=== PATIENT | male | born 1955 | race Caucasian/White ===

== ENCOUNTER 2017-01-24 08:43 | Outpatient (CLI) | payer OTHER | END 2017-01-24 08:44 | disposition home or self-care (01) | DX: Z79.01 Long term (current) use of anticoagulants (principal) ==

== ENCOUNTER 2017-03-01 12:42 | Outpatient (CLI) | payer OTHER | END 2017-03-01 12:43 | disposition home or self-care (01) | DX: Z79.01 Long term (current) use of anticoagulants (principal) ==

== ENCOUNTER 2017-03-28 09:04 | Outpatient (CLI) | payer OTHER ==
[2017-03-28 19:10] LABS: ALBUMIN/GLOBULIN RATIO 1.4 (1.0-2.2); BILIRUBIN,TOTAL 0.7 mg/dL (0.2-1.0); BUN - BLOOD UREA NITROGEN 18 mg/dL (6-20); CALCIUM 9.1 mg/dL (8.5-10.3); CARBON DIOXIDE - CO2 28 mmol/L (21-32); CHLORIDE 104 mmol/L (101-111); CHOL/HDL RATIO 4.1 (<5.0); CHOLESTEROL 155 mg/dL; CREATININE 0.9 mg/dL (0.6-1.2); GFR - MDRD 86 (>89); GLUCOSE 103 mg/dL (70-100); HDL CHOLESTEROL 38 mg/dL; LDL/HDL RATIO 2.5 (<3.6); SODIUM 139 mmol/L (135-145); TOTAL PROTEIN 7.5 g/dL (6.7-8.2); TRIGLYCERIDES 107 mg/dL; VLDL CHOLESTEROL 21 mg/dL
== END 2017-03-28 09:05 | disposition home or self-care (01) ==
LOC: LAB.F 09:04
PROVIDERS: ATTEND Internal Medicine
DX: I10 Essential (primary) hypertension (principal); E78.00 Pure hypercholesterolemia, unspecified
CPT/HCPCS: 36415; 80053; 80061

== ENCOUNTER 2017-05-02 13:36 | Outpatient (CLI) | payer OTHER | END 2017-05-02 13:37 | disposition home or self-care (01) | LOC: LAB.F 13:36 | PROVIDERS: ATTEND Physician Assistant Medical | DX: Z79.01 Long term (current) use of anticoagulants (principal) | CPT/HCPCS: 85610 ==

== ENCOUNTER 2017-05-30 08:53 | Outpatient (CLI) | payer OTHER | END 2017-05-30 08:54 | disposition home or self-care (01) | LOC: LAB.F 08:53 | PROVIDERS: ATTEND Internal Medicine | DX: I10 Essential (primary) hypertension (principal); E78.00 Pure hypercholesterolemia, unspecified; Z79.01 Long term (current) use of anticoagulants ==

== ENCOUNTER 2017-05-31 12:46 | Outpatient (CLI) | payer OTHER ==
[2017-05-31 19:00] LABS: CHOL/HDL RATIO 3.9 (<5.0); CHOLESTEROL 132 mg/dL; HDL CHOLESTEROL 34 mg/dL; LDL/HDL RATIO 2.1 (<3.6); TRIGLYCERIDES 141 mg/dL; VLDL CHOLESTEROL 28 mg/dL
== END 2017-05-31 12:47 | disposition home or self-care (01) ==
LOC: LAB.F 12:46
PROVIDERS: ATTEND Internal Medicine
DX: I10 Essential (primary) hypertension (principal); Z79.01 Long term (current) use of anticoagulants; E78.00 Pure hypercholesterolemia, unspecified
CPT/HCPCS: 36415; 80061; 84460; 85610

== ENCOUNTER 2017-07-01 14:09 | Outpatient (CLI) | payer OTHER | END 2017-07-01 14:10 | disposition home or self-care (01) | LOC: LAB.F 14:09 | PROVIDERS: ATTEND Internal Medicine | DX: Z79.01 Long term (current) use of anticoagulants (principal) | CPT/HCPCS: 85610 ==

== ENCOUNTER 2017-08-01 08:55 | Outpatient (CLI) | payer OTHER | END 2017-08-01 08:56 | disposition home or self-care (01) | LOC: LAB.F 08:55 | PROVIDERS: ATTEND Internal Medicine | DX: Z79.01 Long term (current) use of anticoagulants (principal) | CPT/HCPCS: 85610 ==

== ENCOUNTER 2017-09-02 12:39 | Outpatient (CLI) | payer OTHER | END 2017-09-02 12:40 | disposition home or self-care (01) | LOC: LAB.F 12:39 | PROVIDERS: ATTEND Internal Medicine | DX: Z79.01 Long term (current) use of anticoagulants (principal) | CPT/HCPCS: 85610 ==

== ENCOUNTER 2017-10-03 10:22 | Outpatient (CLI) | payer OTHER | END 2017-10-03 10:23 | disposition home or self-care (01) | LOC: LAB.F 10:22 | PROVIDERS: ATTEND Physician Assistant Medical | DX: I82.509 Chronic embolism and thrombosis of unspecified deep veins of unspecified lower extremity (principal); Z79.01 Long term (current) use of anticoagulants | CPT/HCPCS: 85610 ==

== ENCOUNTER 2018-02-03 08:00 | Outpatient (CLI) | payer OTHER | END 2018-02-03 08:01 | disposition home or self-care (01) | LOC: LAB.F 08:00 | PROVIDERS: ATTEND Physician Assistant Medical | DX: I82.509 Chronic embolism and thrombosis of unspecified deep veins of unspecified lower extremity (principal); Z79.01 Long term (current) use of anticoagulants | CPT/HCPCS: 85610 ==

== ENCOUNTER 2018-03-14 12:43 | Outpatient (CLI) | payer OTHER | END 2018-03-14 12:44 | disposition home or self-care (01) | LOC: LAB.F 12:43 | PROVIDERS: ATTEND Physician Assistant Medical | DX: I82.509 Chronic embolism and thrombosis of unspecified deep veins of unspecified lower extremity (principal); Z79.01 Long term (current) use of anticoagulants | CPT/HCPCS: 85610 ==

== ENCOUNTER 2018-04-13 12:41 | Outpatient (CLI) | payer OTHER | END 2018-04-13 12:42 | disposition home or self-care (01) | LOC: LAB.F 12:41 | PROVIDERS: ATTEND Internal Medicine | DX: I82.509 Chronic embolism and thrombosis of unspecified deep veins of unspecified lower extremity (principal); Z79.01 Long term (current) use of anticoagulants | CPT/HCPCS: 85610 ==

== ENCOUNTER 2018-05-12 12:37 | Outpatient (CLI) | payer OTHER | END 2018-05-12 12:38 | disposition home or self-care (01) | LOC: LAB.F 12:37 | PROVIDERS: ATTEND Internal Medicine | DX: I82.509 Chronic embolism and thrombosis of unspecified deep veins of unspecified lower extremity (principal); Z79.01 Long term (current) use of anticoagulants | CPT/HCPCS: 85610 ==

== ENCOUNTER 2018-06-09 12:31 | Outpatient (CLI) | payer OTHER | END 2018-06-09 12:32 | disposition home or self-care (01) | LOC: LAB.F 12:31 | PROVIDERS: ATTEND Internal Medicine | DX: I82.509 Chronic embolism and thrombosis of unspecified deep veins of unspecified lower extremity (principal); Z79.01 Long term (current) use of anticoagulants | CPT/HCPCS: 85610 ==

== ENCOUNTER 2018-06-19 13:51 | Outpatient (CLI) | payer OTHER ==
[2018-06-19 17:56] LABS: HGB - HEMOGLOBIN 15.7 g/dL (14.0-18.0); MEAN CORPUSCULAR HGB CONC 34.4 g/dL (32.0-36.0); MEAN CORPUSCULAR VOLUME 90.1 fL (80.0-94.0); MEAN PLATELET VOLUME 8.2 fL (7.4-11.4); RED BLOOD COUNT 5.06 10^6/uL (4.70-6.10); WHITE BLOOD COUNT 7.7 x10^3/uL (4.8-10.8)
[2018-06-19 19:20] LABS: ALBUMIN 4.3 g/dL (3.2-5.5); ALBUMIN/GLOBULIN RATIO 1.3 (1.0-2.2); ALKALINE PHOSPHATASE 74 IU/L (42-121); ALT ALANINE AMINOTRANSFERASE 29 IU/L (10-60); AST ASPARTATE AMINOTRANSFERASE 23 IU/L (10-42); BILIRUBIN,TOTAL 0.8 mg/dL (0.2-1.0); BUN - BLOOD UREA NITROGEN 15 mg/dL (6-20); CALCIUM 9.1 mg/dL (8.5-10.3); CARBON DIOXIDE - CO2 26 mmol/L (21-32); CHLORIDE 104 mmol/L (101-111); CHOL/HDL RATIO 4.2 (<5.0); CHOLESTEROL 158 mg/dL; CREATININE 0.9 mg/dL (0.6-1.2); GFR - MDRD 85 (>89); GLUCOSE 97 mg/dL (70-100); HDL CHOLESTEROL 38 mg/dL; LDL CHOLESTEROL,CALCULATED 95 mg/dL; LDL/HDL RATIO 2.5 (<3.6); SODIUM 138 mmol/L (135-145); TOTAL PROTEIN 7.7 g/dL (6.7-8.2); VLDL CHOLESTEROL 25 mg/dL
== END 2018-06-19 13:52 | disposition home or self-care (01) ==
LOC: LAB.F 13:51
PROVIDERS: ATTEND Internal Medicine
DX: E78.00 Pure hypercholesterolemia, unspecified (principal); I10 Essential (primary) hypertension; Z12.5 Encounter for screening for malignant neoplasm of prostate; R00.2 Palpitations
CPT/HCPCS: 36415; 80053; 80061; 83721; 84153; 84443; 85027

== ENCOUNTER 2018-07-12 14:20 | Outpatient (CLI) | payer OTHER | END 2018-07-12 14:21 | disposition home or self-care (01) | LOC: LAB.F 14:20 | PROVIDERS: ATTEND Internal Medicine | DX: I82.509 Chronic embolism and thrombosis of unspecified deep veins of unspecified lower extremity (principal); Z79.01 Long term (current) use of anticoagulants | CPT/HCPCS: 85610 ==

== ENCOUNTER 2018-07-24 12:47 | Outpatient (CLI) | payer OTHER | END 2018-07-24 12:48 | disposition home or self-care (01) | LOC: LAB.F 12:47 | PROVIDERS: ATTEND Internal Medicine | DX: I82.509 Chronic embolism and thrombosis of unspecified deep veins of unspecified lower extremity (principal); Z79.01 Long term (current) use of anticoagulants | CPT/HCPCS: 85610 ==

== ENCOUNTER 2018-09-13 12:40 | Outpatient (CLI) | payer OTHER | END 2018-09-13 12:41 | disposition home or self-care (01) | LOC: LAB.F 12:40 | PROVIDERS: ATTEND Internal Medicine | DX: I82.509 Chronic embolism and thrombosis of unspecified deep veins of unspecified lower extremity (principal); Z79.01 Long term (current) use of anticoagulants | CPT/HCPCS: 85610 ==

== ENCOUNTER 2018-10-16 13:04 | Outpatient (CLI) | payer OTHER | END 2018-10-16 13:05 | disposition home or self-care (01) | LOC: LAB.F 13:04 | PROVIDERS: ATTEND Internal Medicine | DX: I82.509 Chronic embolism and thrombosis of unspecified deep veins of unspecified lower extremity (principal); Z79.01 Long term (current) use of anticoagulants | CPT/HCPCS: 85610 ==

== ENCOUNTER 2019-02-27 12:46 | Outpatient (CLI) | payer OTHER | END 2019-02-27 12:47 | disposition home or self-care (01) | LOC: LAB.F 12:46 | PROVIDERS: ATTEND Internal Medicine | DX: I82.509 Chronic embolism and thrombosis of unspecified deep veins of unspecified lower extremity (principal); Z79.01 Long term (current) use of anticoagulants | CPT/HCPCS: 85610 ==

== ENCOUNTER 2019-04-11 11:28 | Outpatient (CLI) | payer OTHER | END 2019-04-11 11:29 | disposition home or self-care (01) | LOC: LAB.F 11:28 | PROVIDERS: ATTEND Internal Medicine | DX: I82.509 Chronic embolism and thrombosis of unspecified deep veins of unspecified lower extremity (principal); Z79.01 Long term (current) use of anticoagulants | CPT/HCPCS: 85610 ==

== ENCOUNTER 2019-05-15 12:07 | Outpatient (CLI) | payer OTHER | END 2019-05-15 12:08 | disposition home or self-care (01) | LOC: LAB 12:07 | PROVIDERS: ATTEND Internal Medicine | DX: I82.509 Chronic embolism and thrombosis of unspecified deep veins of unspecified lower extremity (principal) | CPT/HCPCS: 85610 ==

== ENCOUNTER 2019-05-23 10:54 | Outpatient (CLI) | payer OTHER | END 2019-05-23 10:55 | disposition home or self-care (01) | LOC: LAB 10:54 | PROVIDERS: ATTEND Internal Medicine | DX: I82.509 Chronic embolism and thrombosis of unspecified deep veins of unspecified lower extremity (principal); Z79.01 Long term (current) use of anticoagulants | CPT/HCPCS: 85610 ==

== ENCOUNTER 2019-06-06 11:30 | Outpatient (CLI) | payer OTHER | END 2019-06-06 11:31 | disposition home or self-care (01) | LOC: LAB 11:30 | PROVIDERS: ATTEND Internal Medicine | DX: I82.509 Chronic embolism and thrombosis of unspecified deep veins of unspecified lower extremity (principal); Z79.01 Long term (current) use of anticoagulants | CPT/HCPCS: 85610 ==

== ENCOUNTER 2019-06-15 | Outpatient (CLI) | payer OTHER | END 2019-06-15 11:09 | disposition home or self-care (01) ==

== ENCOUNTER 2019-06-25 11:43 | Outpatient (CLI) | payer OTHER | END 2019-06-25 11:44 | disposition home or self-care (01) | LOC: LAB 11:43 | PROVIDERS: ATTEND Internal Medicine | DX: I82.509 Chronic embolism and thrombosis of unspecified deep veins of unspecified lower extremity (principal); Z79.01 Long term (current) use of anticoagulants | CPT/HCPCS: 85610 ==

== ENCOUNTER 2019-07-31 11:21 | Outpatient (CLI) | payer OTHER | END 2019-07-31 11:22 | disposition home or self-care (01) | LOC: LAB 11:21 | PROVIDERS: ATTEND Internal Medicine | DX: I82.509 Chronic embolism and thrombosis of unspecified deep veins of unspecified lower extremity (principal); Z79.01 Long term (current) use of anticoagulants | CPT/HCPCS: 85610 ==

== ENCOUNTER 2019-08-24 13:26 | Outpatient (CLI) | payer OTHER | END 2019-08-24 13:27 | disposition home or self-care (01) | LOC: LAB 13:26 | PROVIDERS: ATTEND Internal Medicine | DX: I82.509 Chronic embolism and thrombosis of unspecified deep veins of unspecified lower extremity (principal); Z79.01 Long term (current) use of anticoagulants | CPT/HCPCS: 85610 ==

== ENCOUNTER 2019-09-25 12:47 | Outpatient (CLI) | payer OTHER | END 2019-09-25 12:48 | disposition home or self-care (01) | LOC: LAB 12:47 | PROVIDERS: ATTEND Internal Medicine | DX: I82.509 Chronic embolism and thrombosis of unspecified deep veins of unspecified lower extremity (principal); Z79.01 Long term (current) use of anticoagulants | CPT/HCPCS: 85610 ==

== ENCOUNTER 2020-06-26 11:02 | Outpatient (CLI) | payer MEDICARE ==
[2020-06-26 15:29] LABS: BASOPHILS % (AUTO) 0.6 %; EOSINOPHILS # (AUTO) 0.1 10^3/uL (0.0-0.7); EOSINOPHILS % (AUTO) 1.9 %; HGB - HEMOGLOBIN 15.2 g/dL (14.0-18.0); LYMPHOCYTES % (AUTO) 20.2 %; MEAN CORPUSCULAR HEMOGLOBIN 29.6 pg (27.0-31.0); MEAN CORPUSCULAR HGB CONC 32.3 g/dL (32.0-36.0); MEAN CORPUSCULAR VOLUME 91.8 fL (80.0-94.0); MEAN PLATELET VOLUME 10.9 fL (7.4-11.4); MONOCYTES # (AUTO) 0.5 10^3/uL (0.0-1.0); MONOCYTES % (AUTO) 10.5 %; NEUTROPHILS # (AUTO) 3.2 10^3/uL (1.5-6.6); NEUTROPHILS % (AUTO) 66.6 %; PLT - PLATELET COUNT 161 10^3/uL (130-450); RED BLOOD COUNT 5.13 10^6/uL (4.70-6.10); RED CELL DISTRIBUTION WIDTH 12.1 % (12.0-15.0); WHITE BLOOD COUNT 4.9 x10^3/uL (4.8-10.8)
[2020-06-26 15:53] LABS: HB2 TOTAL 16.2 g/dL; HEMOGLOBIN A1C 0.57 g/dL; HEMOGLOBIN A1C % 5.4 % (4.6-6.2)
[2020-06-26 16:07] LABS: ALBUMIN 4.3 g/dL (3.2-5.5); ALBUMIN/GLOBULIN RATIO 1.3 (1.0-2.2); ALKALINE PHOSPHATASE 72 IU/L (42-121); ALT ALANINE AMINOTRANSFERASE 23 IU/L (10-60); AST ASPARTATE AMINOTRANSFERASE 21 IU/L (10-42); BILIRUBIN,TOTAL 0.8 mg/dL (0.2-1.0); BUN - BLOOD UREA NITROGEN 14 mg/dL (6-20); CALCIUM 9.1 mg/dL (8.5-10.3); CARBON DIOXIDE - CO2 27 mmol/L (21-32); CHLORIDE 101 mmol/L (101-111); CHOL/HDL RATIO 5.8 (<5.0); CHOLESTEROL 197 mg/dL; CREATININE 0.9 mg/dL (0.6-1.2); GLUCOSE 106 mg/dL (70-100); HDL CHOLESTEROL 34 mg/dL; LDL CHOLESTEROL,CALCULATED 136 mg/dL; SODIUM 140 mmol/L (135-145); TOTAL PROTEIN 7.6 g/dL (6.7-8.2); VLDL CHOLESTEROL 27 mg/dL
== END 2020-06-26 11:03 | disposition home or self-care (01) ==
LOC: LAB.S 11:02
PROVIDERS: ATTEND Internal Medicine
DX: E78.00 Pure hypercholesterolemia, unspecified (principal); R73.02 Impaired glucose tolerance (oral); I82.509 Chronic embolism and thrombosis of unspecified deep veins of unspecified lower extremity; Z79.01 Long term (current) use of anticoagulants
CPT/HCPCS: 36415; 80053; 80061; 83036; 83721; 84153; 85025; 85610

== ENCOUNTER 2020-06-30 09:43 | Outpatient (CLI) | payer MEDICARE | END 2020-06-30 09:44 | disposition home or self-care (01) | LOC: LAB.S 09:43 | PROVIDERS: ATTEND Internal Medicine | DX: E78.00 Pure hypercholesterolemia, unspecified (principal); Z79.01 Long term (current) use of anticoagulants | CPT/HCPCS: 84153 ==

== ENCOUNTER 2020-07-28 12:41 | Outpatient (CLI) | payer MEDICARE | END 2020-07-28 12:42 | disposition home or self-care (01) | LOC: LAB 12:41 | PROVIDERS: ATTEND Internal Medicine | DX: I82.509 Chronic embolism and thrombosis of unspecified deep veins of unspecified lower extremity (principal); Z79.01 Long term (current) use of anticoagulants | CPT/HCPCS: 85610 ==

== ENCOUNTER 2020-08-15 09:59 | Outpatient (CLI) | payer MEDICARE | END 2020-08-15 10:00 | disposition home or self-care (01) | LOC: LAB.S 09:59 | PROVIDERS: ATTEND Internal Medicine | DX: I82.509 Chronic embolism and thrombosis of unspecified deep veins of unspecified lower extremity (principal); Z79.01 Long term (current) use of anticoagulants | CPT/HCPCS: 85610 ==

== ENCOUNTER 2020-09-08 15:13 | Outpatient (CLI) | payer MEDICARE | END 2020-09-08 15:14 | disposition home or self-care (01) | LOC: LAB 15:13 | PROVIDERS: ATTEND Internal Medicine | DX: Z79.01 Long term (current) use of anticoagulants (principal) | CPT/HCPCS: 85610 ==

== ENCOUNTER 2020-10-08 11:19 | Outpatient (CLI) | payer MEDICARE | END 2020-10-08 11:20 | disposition home or self-care (01) | LOC: LAB 11:19 | PROVIDERS: ATTEND Internal Medicine | DX: Z79.01 Long term (current) use of anticoagulants (principal) | CPT/HCPCS: 85610 ==

== ENCOUNTER 2020-11-11 10:34 | Outpatient (CLI) | payer MEDICARE | END 2020-11-11 10:35 | disposition home or self-care (01) | LOC: LAB 10:34 | PROVIDERS: ATTEND Internal Medicine | DX: Z79.01 Long term (current) use of anticoagulants (principal) | CPT/HCPCS: 85610 ==

== ENCOUNTER 2021-01-20 09:59 | Outpatient (CLI) | payer MEDICARE | END 2021-01-20 10:00 | disposition home or self-care (01) | LOC: LAB.S 09:59 | PROVIDERS: ATTEND Internal Medicine | DX: Z79.01 Long term (current) use of anticoagulants (principal) | CPT/HCPCS: 85610 ==

== ENCOUNTER 2021-01-30 12:24 | Outpatient (CLI) | payer MEDICARE | END 2021-01-30 12:25 | disposition home or self-care (01) | LOC: LAB.S 12:24 | PROVIDERS: ATTEND Internal Medicine | DX: Z79.01 Long term (current) use of anticoagulants (principal) | CPT/HCPCS: 85610 ==

== ENCOUNTER 2021-03-11 08:00 | Outpatient (CLI) | payer MEDICARE ==
--- NOTE | 2021-03-11 13:21 | XRAY Report ---
PROCEDURE: Foot 3 View LT INDICATIONS: LEFT FOOT PAIN TECHNIQUE: 3 views of the foot were acquired. COMPARISON: None FINDINGS: Bones: No fractures or dislocations. No suspicious bony lesions. Soft tissues: No tibiotalar joint effusion. Achilles tendon appears normal. IMPRESSION: No evidence acute bony abnormality of the left foot. Reviewed by: Elier Cook MD on 03/11/2021 1:20 PM PDT Approved by: Elier Cook MD on 03/11/2021 1:20 PM PDT Station ID: [id number]
== END 2021-03-11 23:59 | disposition home or self-care (01) ==
LOC: DI.S 08:00
PROVIDERS: ATTEND Physician Assistant Medical
DX: M79.672 Pain in left foot (principal); L98.9 Disorder of the skin and subcutaneous tissue, unspecified

== ENCOUNTER 2021-05-12 08:22 | Outpatient (CLI) | payer MEDICARE ==
[2021-05-12 08:47] LABS: BASOPHILS % (AUTO) 0.8 %; EOSINOPHILS # (AUTO) 0.1 10^3/uL (0.0-0.7); EOSINOPHILS % (AUTO) 2.5 %; HCT - HEMATOCRIT 43.4 % (42.0-52.0); HGB - HEMOGLOBIN 14.8 g/dL (14.0-18.0); LYMPHOCYTES # (AUTO) 1.2 10^3/uL (1.5-3.5); LYMPHOCYTES % (AUTO) 23.2 %; MEAN CORPUSCULAR HGB CONC 34.1 g/dL (32.0-36.0); MEAN PLATELET VOLUME 10.3 fL (7.4-11.4); MONOCYTES # (AUTO) 0.5 10^3/uL (0.0-1.0); MONOCYTES % (AUTO) 9.7 %; NEUTROPHILS # (AUTO) 3.3 10^3/uL (1.5-6.6); NEUTROPHILS % (AUTO) 63.4 %; PLT - PLATELET COUNT 144 10^3/uL (130-450); RED BLOOD COUNT 4.77 10^6/uL (4.70-6.10); RED CELL DISTRIBUTION WIDTH 11.8 % (12.0-15.0); WHITE BLOOD COUNT 5.3 x10^3/uL (4.8-10.8)
[2021-05-12 08:59] LABS: ALBUMIN 4.4 g/dL (3.2-5.5); ALBUMIN/GLOBULIN RATIO 1.6 (1.0-2.2); ALKALINE PHOSPHATASE 57 IU/L (42-121); ALT ALANINE AMINOTRANSFERASE 23 IU/L (10-60); AST ASPARTATE AMINOTRANSFERASE 20 IU/L (10-42); BILIRUBIN,TOTAL 1.2 mg/dL (0.2-1.0); BUN - BLOOD UREA NITROGEN 17 mg/dL (6-20); CALCIUM 9.2 mg/dL (8.5-10.3); CARBON DIOXIDE - CO2 25 mmol/L (21-32); CHLORIDE 106 mmol/L (101-111); CHOL/HDL RATIO 5.5 (<5.0); CHOLESTEROL 169 mg/dL; CREATININE 0.8 mg/dL (0.6-1.2); GFR - MDRD 97 (>89); GLUCOSE 104 mg/dL (70-100); HDL CHOLESTEROL 31 mg/dL; LDL CHOLESTEROL,CALCULATED 120 mg/dL; LDL/HDL RATIO 3.9 (<3.6); SODIUM 141 mmol/L (135-145); TOTAL PROTEIN 7.2 g/dL (6.7-8.2); TRIGLYCERIDES 90 mg/dL; VLDL CHOLESTEROL 18 mg/dL
== END 2021-05-12 08:23 | disposition home or self-care (01) ==
LOC: LAB 08:22
PROVIDERS: ATTEND Internal Medicine
DX: I10 Essential (primary) hypertension (principal); Z12.5 Encounter for screening for malignant neoplasm of prostate
CPT/HCPCS: 36415; 80053; 80061; 85025; G0103; 83721; 84153

== ENCOUNTER 2021-06-02 11:10 | Outpatient (CLI) | payer MEDICARE ==
[2021-06-02] MEDS ORDERED: IOVERSOL 320 50 ML VIAL ONE (11:45)
[2021-06-02] MEDS ORDERED: IOVERSOL 320 100 ML VIAL IVP ONE ×2 (12:45→16:56)
--- NOTE | 2021-06-02 14:34 | CT Report ---
PROCEDURE: Abdomen/Pelvis W INDICATIONS: RLQ ABD PAIN CONTRAST: IV CONTRAST: Optiray 320 ml: 100 PO CONTRAST: Optiray 320 ml50 TECHNIQUE: After the administration of intravenous and oral contrast, 5 mm thick sections acquired from the diap hragms to the symphysis. 5 mm thick coronal and sagittal reformats were acquired. For radiation dos e reduction, the following was used: automated exposure control, adjustment of mA and/or kV accordin g to patient size. COMPARISON: None. FINDINGS: Image quality: Excellent. ABDOMEN: Lung bases: There is a 2 mm nodule in the right middle lobe (series 4 image 2). Lung bases are other altamirano there. Heart size is normal. Small hiatal hernia. Solid organs: There are multiple low-density nodules in liver, indeterminate but most likely hepatic cysts. Liver and spleen are normal in size and enhancement. There is a 1.4 cm splenule. Gallbladder is normal. Biliary system is non dilated. Pancreas enhances normally. No adrenal nodules. Kidney s demonstrate normal size and enhancement, without hydronephrosis. Peritoneum and bowel: Bowel loops demonstrate normal wall thickness and caliber. Normal appendix. N o free fluid or air. Nodes and vessels: No retroperitoneal or mesenteric adenopathy by size criteria. Aorta and inferior vena cava are normal in size. Miscellaneous: No ventral hernias. PELVIS: Genitourinary: Bladder wall thickness is normal. Miscellaneous: No inguinal adenopathy. Bilateral small fat-containing inguinal hernias, left larger than right. Bones: No suspicious bony lesions. No vertebral body compression fractures. IMPRESSION: 1. Normal appendix. A cause for right lower quadrant pain is not identified. 2. Multiple indeterminate small low-density nodules in liver, most likely hepatic cysts. 3. A 2 mm nodule in the right lower lobe. Please see enclosed follow-up recommendation. Fleischner Society criteria for SOLID lung nodule followup. Nodule size (mm) Low-risk patient High-risk patient ?4 No follow-up needed Follow-up at 12 mo; if no change, no further follow-up >4-[address] at 12 mo; if no change, no further follow-up needed. Initial follow-up CT at 6-12 mo, then 18-24 mo if no change. >6-8 Initial follow-up CT at 6-12 mo, then 18-24 mo if no change. Initial follow-up CT at 3-6 mo, then 9-12 mo and 24 mo if no change. >8 Follow-[address] at 3, 9, 24 mo. Or PET and/or biopsy. Same as for low-risk pts. Reviewed by: Rupinder Ortiz MD on 06/02/2021 2:33 PM PDT Approved by: Rupinder Ortiz MD on 06/02/2021 2:33 PM PDT Station ID: [id number]
[2021-06-02] MEDS ORDERED: IOVERSOL 320 50 ML VIAL PO ONE (16:58)
== END 2021-06-02 11:11 | disposition home or self-care (01) ==
LOC: DI 11:10
PROVIDERS: ATTEND Surgery
DX: R10.31 Right lower quadrant pain (principal); R16.0 Hepatomegaly, not elsewhere classified; R91.1 Solitary pulmonary nodule
CPT/HCPCS: 74177; Q9967

== ENCOUNTER 2022-05-03 13:38 | Emergency (ER) | payer MEDICARE ==
--- NOTE | 2022-05-03 15:26 | Ultrasound Report ---
PROCEDURE: Duplex Ext Veins Bilateral INDICATIONS: History of DVT with recent travel TECHNIQUE: Real-time imaging, as well as color and pulse Doppler interrogation, were performed of the deep veins of both legs from the inguinal ligament to the popliteal fossa. COMPARISON: None FINDINGS: There is occlusive thrombus within the right superficial femoral, proximal on the and popli teal veins. Thrombus does extend into the posterior tibial as well as peroneal veins. It is noncompre ssible there is a diminutive caliber of the vessel. Normal appearance of left deep veins. IMPRESSION: Occlusive thrombus within the right lower extremity as described above. Given somewhat diminutive marlen iber of the vessel, appearance is suggestive of chronic thrombosis. No priors are available for dee rison. Areas of acute on chronic cannot be definitively excluded. No left deep vein thrombosis. Reviewed by: Namrata Hawkins MD on 05/03/2022 3:24 PM PDT Approved by: Namrata Hawkins MD on 05/03/2022 3:24 PM PDT Station ID: [id number]
--- NOTE | 2022-05-03 15:39 | ED Physician Documentation ---
History of Present Illness - Stated complaint Stated Complaint: LEG PAIN BILAT - Chief complaint Chief Complaint: Ext Problem - History obtained from History obtained from: Patient - History of Present Illness Timing: How many weeks ago (4) - Additonal information Additional information: 66-year-old male with history of DVT on Eliquis presents by private vehicle for approximately 1 month of lower extremity swelling and pain. Patient states that he took an extended vacation to [place], and at that time he ran out of his normal Eliquis. He states that he bought Eliquis at a [facility] pharmacy, which he thought was working, however shortly after he started taking the [facility] Eliquis he noticed pain in his legs. Patient states that he has been scheduled for an ultrasound with his primary care physician, but his legs are too painful and he is here today with assistance in pain control and to find out what the cause of his leg swelling is. He states 5 days ago he got a refill of his Eliquis from [facility], which is his normal medical dose. Review of Systems Ten Systems: 10 systems reviewed and negative Constitutional: denies: Fever, Chills, Myalgias, Fatigue, Weight Loss, Sweats, Reviewed and negative, Other Eyes: denies: Loss of vision, Decreased vision, Photophobia, Discharge, Irritation, Reviewed and negative, Other Ears: denies: Loss of hearing, Ear pain, Drainage/discharge, Tinnitus/ringing, Foreign body, Reviewed and negative, Other Nose: denies: Rhinorrhea / runny nose, Congestion, Epistaxis, Sinus pressure / pain, Foreign Body, Reviewed and negative, Other Throat: denies: Dental pain / toothache, Oral lesions / sores, Sore throat, Swollen tonsils, Swallowed foreign body, Reviewed and negative, Other Cardiac: denies: Chest pain / pressure, Palpitations, Pedal edema, Calf pain, Reviewed and negative, Other Respiratory: denies: Dyspnea, Cough, Hemoptysis, Wheezing, Reviewed and negative, Other GI: denies: Abdominal Pain, Abdominal Swelling, Nausea, Vomiting, Constipation, Diarrhea, Hematemesis, Bloody / black stool, Reviewed and negative, Other : denies: Dysuria, Frequency, Hesitancy, Unable to Void, Incontinent, Hematuria, Discharge, LMP, Vaginal bleeding, Irregular menses, Missed period, Now EGA, Control, Hysterectomy, Testicular pain, Testicular mass, Cunha Problem, Reviewed and negative, Other Skin: denies: Rash, Lesions, Abrasion (s), Laceration (s), Bite / sting, Reviewed and negative, Other Musculoskeletal: reports: Extremity swelling. denies: Neck pain, Joint pain Neurologic: denies: Generalized weakness, Focal weakness, Numbness, Difficulty speaking, Near syncope, Syncope, Seizure, Confused, Altered mental status, Unresponsive, Headache, Head injury, LOC, Reviewed and negative, Other Psychiatric: denies: Depressed, Suicidal, Homicidal, Hallucinations, Delusions, Anxiety, Insomnia, Reviewed and negative, Other PD PAST MEDICAL HISTORY - Past Medical History Past Medical History: Yes - Present Medications Home Medications: Ambulatory Orders Medication Instructions Recorded Confirmed Acetaminophen/Cod 300/30 [Tylenol 1 each PO Q6H PRN 3 Days #12 tablet 05/03/22 #3] - Allergies Allergies/Adverse Reactions: Allergies Allergy/AdvReac Type Severity Reaction Status Date / Time aspirin Allergy Unknown Verified 05/03/22 13:48 NSAIDS (Non-Steroidal Allergy Unknown Verified 05/03/22 13:48 Anti-Inflamma PD ED PE NORMAL - Vitals Vital signs reviewed: Yes - General General: Alert and oriented X 3, No acute distress - Neck Neck: Supple, no meningeal sign, No bony TTP, No adenopathy, Thyroid normal, No JVD, No bruit, C-Spine cleared by NEXUS criteria, Other - Cardiac Cardiac: RRR, No murmur, No gallop, No rub, Strong equal pulses, Other - Respiratory Respiratory: No respiratory distress, Clear bilaterally, Other - Abdomen Abdomen: Normal bowel sounds, Soft, Non tender, Non distended, No organomegaly, Other - Derm Derm: Normal color, Warm and dry, No rash, Other - Extremities Extremities: No deformity, No tenderness to palpate, Normal ROM s pain, Other (Bilateral leg swelling, R>L) - Neuro Neuro: Alert and oriented X 3, gis database administrator 2-12 intact, No motor deficit, No sensory deficit, Normal speech, Other - Psych Psych: Normal mood, Normal affect Results - Vitals Vitals: Vital Signs - 24 hr 05/03/22 05/03/22 13:40 15:48 Temperature 36.5 C 36.6 C Heart Rate 91 84 Respiratory 18 16 Rate Blood Pressure 172/90 H 147/86 H O2 Saturation 100 98 Oxygen O2 Source Room air PD MEDICAL DECISION MAKING - ED course ED course: Chronic DVT in lower extremity, Presumed from not taking the correct Eliquis. Patient is currently back on his usual dose of Eliquis from the correct pharmacy. Patient is here today for additional pain control, which was provided for the patient. Counseled on the importance of following up with his primary care physician. Departure - Departure Disposition: Home, Self Care Clinical Impression: Deep vein thrombosis Qualifiers: DVT location: lower extremity Affected thrombotic vein of extremity: other lower extremity vein Chronicity: chronic Laterality: right Qualified Code(s): I82.591 - Chronic embolism and thrombosis of other specified deep vein of right lower extremity Condition: Good Instructions: DVT Dc, ED DVT Prescriptions: Acetaminophen/Cod 300/30 [Tylenol #3] 1 each PO Q6H PRN 3 Days #12 tablet PRN Reason: Pain Comments: Keep taking your Eliquis as prescribed. Follow-up as soon as possible with your primary care physician for further monitoring of your DVTs. Discharge Date/Time: 05/03/22 15:49
[2022-05-03 15:49] VITALS: BP 147/86
== END 2022-05-03 15:49 | disposition home or self-care (01) ==
LOC: ED 13:38
DX: I82.591 Chronic embolism and thrombosis of other specified deep vein of right lower extremity (principal)
CPT/HCPCS: 93970; 99284

== ENCOUNTER 2022-07-13 17:42 | Outpatient (CLI) | payer MEDICARE ==
--- NOTE | 2022-07-13 19:51 | Ultrasound Report ---
PROCEDURE: Duplex Ext Veins Left INDICATIONS: PAIN IN LEFT LOWER LEG,CUTANEOUS ERUPTION TECHNIQUE: Real-time imaging, as well as color and pulse Doppler interrogation, were performed of the lower extr emity deep veins from the inguinal ligament to the popliteal fossa. COMPARISON: 05/03/2022 FINDINGS: deep venous thrombosis present in the common femoral vein, superficial femoral vein proxim ally and the popliteal vein. Superficial thrombus at the greater saphenous vein also demonstrated. Ot her deep veins are normally compressible, and free of intraluminal thrombus. Color and pulse Doppler demonstrate normal phasic intraluminal flow. IMPRESSION: 1. Nonocclusive deep venous thrombosis involving the common femoral vein, proximal femoral vein and p opliteal vein. 2. Superficial venous thrombosis of the downstream greater saphenous vein. Reviewed by: Zeke Raphael MD on 07/13/2022 7:50 PM PDT Approved by: Zeke Raphael MD on 07/13/2022 7:50 PM PDT Station ID: [id number]
== END 2022-07-13 17:43 | disposition home or self-care (01) ==
LOC: DI 17:42
PROVIDERS: ATTEND Physician Assistant Medical
DX: I82.412 Acute embolism and thrombosis of left femoral vein (principal); I82.432 Acute embolism and thrombosis of left popliteal vein; I82.812 Embolism and thrombosis of superficial veins of left lower extremity

== ENCOUNTER 2022-07-13 18:50 | Emergency (ER) | payer MEDICARE ==
[2022-07-13 19:35] LABS: BASOPHILS % (AUTO) 0.4 %; EOSINOPHILS # (AUTO) 0.1 10^3/uL (0.0-0.7); EOSINOPHILS % (AUTO) 1.3 %; HCT - HEMATOCRIT 40.4 % (42.0-52.0); HGB - HEMOGLOBIN 13.5 g/dL (14.0-18.0); LYMPHOCYTES # (AUTO) 1.1 10^3/uL (1.5-3.5); LYMPHOCYTES % (AUTO) 12.3 %; MEAN CORPUSCULAR HEMOGLOBIN 29.9 pg (27.0-31.0); MEAN CORPUSCULAR HGB CONC 33.4 g/dL (32.0-36.0); MEAN CORPUSCULAR VOLUME 89.6 fL (80.0-94.0); MEAN PLATELET VOLUME 9.5 fL (7.4-11.4); MONOCYTES % (AUTO) 10.5 %; NEUTROPHILS # (AUTO) 6.8 10^3/uL (1.5-6.6); NEUTROPHILS % (AUTO) 75.3 %; PLT - PLATELET COUNT 153 10^3/uL (130-450); RED BLOOD COUNT 4.51 10^6/uL (4.70-6.10)
[2022-07-13 19:42] LABS: CALCIUM 8.9 mg/dL (8.5-10.3); CREATININE 0.9 mg/dL (0.6-1.2); POTASSIUM 3.9 mmol/L (3.5-5.0)
[2022-07-13] MEDS ORDERED: ENOXAPARIN 100 MG/ML SYRINGE SUBQ STA (20:06)
--- NOTE | 2022-07-13 20:11 | ED Physician Documentation ---
History of Present Illness - Stated complaint Stated Complaint: LT LEG PAIN & SWELLING - Chief complaint Chief Complaint: Ext Problem - History obtained from History obtained from: Patient - Additonal information Additional information: 66-year-old gentleman with chronic thromboembolic issues without known hypercoagulable disorder despite work-up. Problem started about 12 years ago with DVT in the right leg and has subsequent subsequent multiple DVTs since then. He was fairly stable though as long as he was on warfarin, about a year ago he was switched to Eliquis for convenience and developed DVTs through the Eliquis. 3 days ago started dabigatran, but developed bruising and rashes with that. Sent for an outpatient ultrasound today showing extensive clot load in the left lower extremity and was referred in by urgent care to start him on Lovenox. Review of Systems Constitutional: reports: Reviewed and negative Eyes: reports: Reviewed and negative Ears: reports: Reviewed and negative Nose: reports: Reviewed and negative Cardiac: reports: Reviewed and negative Respiratory: reports: Reviewed and negative PD PAST MEDICAL HISTORY - Past Medical History Past Medical History: Yes Cardiovascular: Deep vein thrombosis - Present Medications Home Medications: Ambulatory Orders Medication Instructions Recorded Confirmed Acetaminophen/Cod 300/30 [Tylenol 1 each PO Q6H PRN 3 Days #12 tablet 05/03/22 #3] Enoxaparin Sodium [Lovenox] 100 mg SQ BID #10 ahfu 07/13/22 Warfarin [Coumadin] 1 mg PO DAILY #32 tablet 07/13/22 - Allergies Allergies/Adverse Reactions: Allergies Allergy/AdvReac Type Severity Reaction Status Date / Time aspirin Allergy Unknown Verified 07/13/22 19:07 dabigatran etexilate Allergy Rash Verified 07/13/22 19:43 [From Pradaxa] NSAIDS (Non-Steroidal Allergy Unknown Verified 07/13/22 19:07 Anti-Inflamma - Social History Does the pt smoke?: No Smoking Status: Never smoker Does the pt drink ETOH?: No Does the pt have substance abuse?: No - Immunizations Immunizations are current?: Yes PD ED PE NORMAL - Vitals Vital signs reviewed: Yes - General General: Alert and oriented X 3, No acute distress - Extremities Extremities: Other (Asymmetric edema without tenderness of the left lower extremity without diminished pedal pulses or poor cap refill.) - Neuro Neuro: Alert and oriented X 3, Normal speech Results - Vitals Vitals: Vital Signs - 24 hr 08/30/22 08/30/22 19:03 20:12 Temperature 36.7 C 36.8 C Heart Rate 88 82 Respiratory 14 15 Rate Blood Pressure 160/88 H 155/81 H O2 Saturation 98 99 Oxygen O2 Source Room air - Labs Labs: Laboratory Tests 07/13/22 07/13/22 19:27 19:27 WBC 9.0 RBC 4.51 L Hgb 13.5 L Hct 40.4 L MCV 89.6 MCH 29.9 MCHC 33.4 RDW 13.0 Plt Count 153 MPV 9.5 Neut # (Auto) 6.8 H Lymph # (Auto) 1.1 L [place] # (Auto) 1.0 Eos # (Auto) 0.1 Baso # (Auto) 0.0 Absolute Nucleated RBC 0.00 Nucleated RBC % 0.0 Sodium 136 Potassium 3.9 Chloride 102 Carbon Dioxide 25 Anion Gap 9.0 BUN 13 Creatinine 0.9 Estimated GFR (MDRD) 84 L Glucose 103 H Calcium 8.9 PD MEDICAL DECISION MAKING - ED course ED course: 66-year-old gentleman presents with recurrent DVT wanting to go back onto Lovenox and warfarin. He feels comfortable giving himself Lovenox. Note that his warfarin level was chosen based on his previous effective dose. Departure - Departure Disposition: 01 Home, Self Care Clinical Impression: Deep vein thrombosis Qualifiers: DVT location: lower extremity Affected thrombotic vein of extremity: femoral Chronicity: acute Laterality: left Qualified Code(s): I82.412 - Acute embolism and thrombosis of left femoral vein Condition: Good Record reviewed to determine appropriate education?: Yes Instructions: ED DVT, Lovenox, Warfarin Prescriptions: Warfarin [Coumadin] 1 mg PO DAILY #32 tablet Enoxaparin Sodium [Lovenox] 100 mg SQ BID #10 ahfu Comments: As discussed, I think it is reasonable to follow-up for a second opinion with a scientific laboratory supervisor as you already planning, and I am also writing an email to your primary care physician for consideration for vascular surgery consultation. You will take the Lovenox which is a long-acting heparin twice a day for 5 days and start the warfarin tomorrow. He will need to have frequent INR checks especially being at the beginning. Millie Haq told me she plans to reach out to you to set this up. Tomorrow start warfarin, 2 mg a day for 2 days, then 1 mg a day, plan on an INR check Tuesday or Tuesday.
[2022-07-13 20:13] VITALS: BP 155/81
== END 2022-07-13 20:12 | disposition home or self-care (01) ==
LOC: ED 18:50
DX: I82.412 Acute embolism and thrombosis of left femoral vein (principal)
CPT/HCPCS: 36415; 80048; 85025; 96372; 99283; J1650

== ENCOUNTER 2022-07-17 10:53 | Outpatient (CLI) | payer MEDICARE | END 2022-07-17 10:54 | disposition home or self-care (01) | LOC: LAB 10:53 | PROVIDERS: ATTEND Registered Nurse | DX: Z79.01 Long term (current) use of anticoagulants (principal) | CPT/HCPCS: 36416; 85610 ==

== ENCOUNTER 2022-07-20 07:55 | Outpatient (CLI) | payer MEDICARE | END 2022-07-20 07:56 | disposition home or self-care (01) | LOC: LAB.S 07:55 | PROVIDERS: ATTEND Registered Nurse | DX: Z79.01 Long term (current) use of anticoagulants (principal) | CPT/HCPCS: 36416; 85610 ==

== ENCOUNTER 2022-07-23 08:26 | Outpatient (CLI) | payer MEDICARE | END 2022-07-23 08:27 | disposition home or self-care (01) | LOC: LAB.S 08:26 | PROVIDERS: ATTEND Registered Nurse | DX: Z79.01 Long term (current) use of anticoagulants (principal) | CPT/HCPCS: 36416; 85610 ==

== ENCOUNTER 2022-07-26 11:23 | Outpatient (CLI) | payer MEDICARE | END 2022-07-26 11:24 | disposition home or self-care (01) | LOC: LAB 11:23 | PROVIDERS: ATTEND Registered Nurse | DX: Z79.01 Long term (current) use of anticoagulants (principal) | CPT/HCPCS: 36416; 85610 ==

== ENCOUNTER 2022-08-03 12:35 | Outpatient (CLI) | payer MEDICARE | END 2022-08-03 12:36 | disposition home or self-care (01) | LOC: LAB 12:35 | PROVIDERS: ATTEND Registered Nurse | DX: Z79.01 Long term (current) use of anticoagulants (principal) | CPT/HCPCS: 36416; 85610 ==

== ENCOUNTER 2022-08-05 09:15 | Outpatient (CLI) | payer MEDICARE | END 2022-08-05 09:16 | disposition home or self-care (01) | LOC: LAB.S 09:15 | PROVIDERS: ATTEND Registered Nurse | DX: Z79.01 Long term (current) use of anticoagulants (principal) | CPT/HCPCS: 36416; 85610 ==

== ENCOUNTER 2022-08-09 12:31 | Outpatient (CLI) | payer MEDICARE | END 2022-08-09 12:32 | disposition home or self-care (01) | LOC: LAB.S 12:31 | PROVIDERS: ATTEND Registered Nurse | DX: Z79.01 Long term (current) use of anticoagulants (principal) | CPT/HCPCS: 36416; 85610 ==

== ENCOUNTER 2022-08-16 08:02 | Outpatient (CLI) | payer MEDICARE | END 2022-08-16 08:03 | disposition home or self-care (01) | LOC: LAB 08:02 | PROVIDERS: ATTEND Registered Nurse | DX: Z79.01 Long term (current) use of anticoagulants (principal) | CPT/HCPCS: 36416; 85610 ==

== ENCOUNTER 2022-08-23 10:21 | Outpatient (CLI) | payer MEDICARE | END 2022-08-23 10:22 | disposition home or self-care (01) | LOC: LAB 10:21 | PROVIDERS: ATTEND Registered Nurse | DX: Z79.01 Long term (current) use of anticoagulants (principal) | CPT/HCPCS: 36416; 85610 ==

== ENCOUNTER 2022-08-30 10:09 | Outpatient (CLI) | payer MEDICARE | END 2022-08-30 10:10 | disposition home or self-care (01) | LOC: LAB 10:09 | PROVIDERS: ATTEND Registered Nurse | DX: Z79.01 Long term (current) use of anticoagulants (principal) | CPT/HCPCS: 36416; 85610 ==

== ENCOUNTER 2022-09-06 13:48 | Outpatient (CLI) | payer MEDICARE | END 2022-09-06 13:49 | disposition home or self-care (01) | LOC: LAB 13:48 | PROVIDERS: ATTEND Registered Nurse | DX: Z79.01 Long term (current) use of anticoagulants (principal) | CPT/HCPCS: 36416; 85610 ==

== ENCOUNTER 2022-09-13 13:53 | Outpatient (CLI) | payer MEDICARE | END 2022-09-13 13:54 | disposition home or self-care (01) | LOC: LAB 13:53 | PROVIDERS: ATTEND Registered Nurse | DX: Z79.01 Long term (current) use of anticoagulants (principal) | CPT/HCPCS: 85610 ==

== ENCOUNTER 2022-09-27 11:25 | Outpatient (CLI) | payer MEDICARE | END 2022-09-27 11:26 | disposition home or self-care (01) | LOC: LAB 11:25 | PROVIDERS: ATTEND Registered Nurse | DX: Z79.01 Long term (current) use of anticoagulants (principal) | CPT/HCPCS: 36416; 85610 ==

== ENCOUNTER 2022-10-05 14:42 | Outpatient (CLI) | payer MEDICARE | END 2022-10-05 14:43 | disposition home or self-care (01) | LOC: LAB 14:42 | PROVIDERS: ATTEND Registered Nurse | DX: Z79.01 Long term (current) use of anticoagulants (principal) | CPT/HCPCS: 36416; 85610 ==

== ENCOUNTER 2022-10-20 10:00 | Outpatient (CLI) | payer MEDICARE | END 2022-10-20 10:01 | disposition home or self-care (01) | LOC: LAB 10:00 | PROVIDERS: ATTEND Registered Nurse | DX: Z79.01 Long term (current) use of anticoagulants (principal) | CPT/HCPCS: 36416; 85610 ==

== ENCOUNTER 2022-11-11 09:05 | Outpatient (CLI) | payer MEDICARE | END 2022-11-11 09:06 | disposition home or self-care (01) | LOC: LAB 09:05 | PROVIDERS: ATTEND Registered Nurse | DX: Z79.01 Long term (current) use of anticoagulants (principal) | CPT/HCPCS: 36416; 85610 ==

== ENCOUNTER 2022-12-13 11:00 | Outpatient (CLI) | payer MEDICARE | END 2022-12-13 11:01 | disposition home or self-care (01) | LOC: LAB 11:00 | PROVIDERS: ATTEND Registered Nurse | DX: Z79.01 Long term (current) use of anticoagulants (principal) | CPT/HCPCS: 36416; 85610 ==

== ENCOUNTER 2022-12-20 08:14 | Outpatient (CLI) | payer MEDICARE ==
[2022-12-20 08:54] LABS: BASOPHILS # (AUTO) 0.1 10^3/uL (0.0-0.1); EOSINOPHILS # (AUTO) 0.2 10^3/uL (0.0-0.7); HGB - HEMOGLOBIN 15.1 g/dL (14.0-18.0); LYMPHOCYTES # (AUTO) 1.2 10^3/uL (1.5-3.5); LYMPHOCYTES % (AUTO) 19.7 %; MEAN CORPUSCULAR HEMOGLOBIN 29.8 pg (27.0-31.0); MEAN CORPUSCULAR HGB CONC 32.8 g/dL (32.0-36.0); MEAN CORPUSCULAR VOLUME 90.9 fL (80.0-94.0); MEAN PLATELET VOLUME 9.8 fL (7.4-11.4); MONOCYTES # (AUTO) 0.5 10^3/uL (0.0-1.0); MONOCYTES % (AUTO) 8.6 %; NEUTROPHILS # (AUTO) 4.1 10^3/uL (1.5-6.6); NEUTROPHILS % (AUTO) 67.5 %; PLT - PLATELET COUNT 154 10^3/uL (130-450); RED BLOOD COUNT 5.06 10^6/uL (4.70-6.10); RED CELL DISTRIBUTION WIDTH 12.5 % (12.0-15.0)
[2022-12-20 09:12] LABS: ALBUMIN 4.2 g/dL (3.2-5.5); ALBUMIN/GLOBULIN RATIO 1.1 (1.0-2.2); BILIRUBIN,TOTAL 1.1 mg/dL (0.2-1.0); CALCIUM 9.3 mg/dL (8.5-10.3); CREATININE 1.1 mg/dL (0.6-1.2); CRP HIGH SENSITIVITY 1.5 mg/L; POTASSIUM 4.1 mmol/L (3.5-5.0); TOTAL PROTEIN 8.2 g/dL (6.7-8.2)
[2022-12-20 09:32] LABS: THYROID STIMULATING HORMONE 2.98 uIU/mL (0.34-5.60)
[2022-12-20 09:35] LABS: FREE T3 3.09 pg/mL (2.5-3.9)
[2022-12-20 09:36] LABS: FREE T4 (FREE THYROXINE) 0.84 ng/dL (0.58-1.64)
[2022-12-20 09:59] LABS: FOLLICLE STIMULATING HORMONE 8.32 mIU/mL
[2022-12-20 10:00] LABS: LUTEINIZING HORMONE 5.06 mIU/mL
[2022-12-21 08:10] LABS: DHEA-SULFATE 83.2 ug/dL (30.9-295.6); SEX HORM BINDING GLOB SERUM 28.6 nmol/L (19.3-76.4)
[2022-12-22 01:07] LABS: VITAMIN D 25-HYDROXY 27.2 ng/mL (30.0-100.0)
[2022-12-22 13:10] LABS: FREE TESTOSTERONE(DIRECT) 10.5 pg/mL (6.6-18.1)
== END 2022-12-20 08:15 | disposition home or self-care (01) ==
LOC: LAB 08:14
PROVIDERS: ATTEND Naturopath
DX: E29.1 Testicular hypofunction (principal); R53.83 Other fatigue; R06.83 Snoring
CPT/HCPCS: 36415; 80053; 82306; 82533; 82607; 82627; 82642; 82670; 83001; 83002; 83880; 84270; 84402; 84403; 84439; 84443; 84481; 85025; 86141

== ENCOUNTER 2022-12-23 08:00 | Outpatient (CLI) | payer MEDICARE ==
[2022-12-23 09:13] LABS: FOLLICLE STIMULATING HORMONE 7.24 mIU/mL
[2022-12-23 09:14] LABS: LUTEINIZING HORMONE 4.35 mIU/mL
[2022-12-24 07:10] LABS: DHEA-SULFATE 61.8 ug/dL (30.9-295.6); ESTRADIOL 15.9 pg/mL (7.6-42.6)
[2022-12-24 18:07] LABS: FREE TESTOSTERONE(DIRECT) 7.3 pg/mL (6.6-18.1)
== END 2022-12-23 08:01 | disposition home or self-care (01) ==
LOC: LAB 08:00
PROVIDERS: ATTEND Naturopath
DX: E29.1 Testicular hypofunction (principal); R53.83 Other fatigue; R06.83 Snoring
CPT/HCPCS: 36415; 82627; 82642; 82670; 83001; 83002; 84402; 84403

== ENCOUNTER 2023-01-12 08:25 | Outpatient (CLI) | payer MEDICARE | END 2023-01-12 08:26 | disposition home or self-care (01) | LOC: LAB 08:25 | PROVIDERS: ATTEND Registered Nurse | DX: Z79.01 Long term (current) use of anticoagulants (principal) | CPT/HCPCS: 36416; 85610 ==

== ENCOUNTER 2023-02-11 10:27 | Outpatient (CLI) | payer MEDICARE | END 2023-02-11 10:28 | disposition home or self-care (01) | LOC: LAB 10:27 | PROVIDERS: ATTEND Registered Nurse | DX: Z79.01 Long term (current) use of anticoagulants (principal) | CPT/HCPCS: 36416; 85610 ==

== ENCOUNTER 2023-02-14 07:58 | Outpatient (CLI) | payer MEDICARE ==
[2023-02-15 07:10] LABS: DHEA-SULFATE 72.4 ug/dL (30.9-295.6); ESTRADIOL 23.9 pg/mL (7.6-42.6); VITAMIN D 25-HYDROXY 64.5 ng/mL (30.0-100.0)
== END 2023-02-14 07:59 | disposition home or self-care (01) ==
LOC: LAB 07:58
PROVIDERS: ATTEND Naturopath
DX: E29.1 Testicular hypofunction (principal); R53.83 Other fatigue; E55.9 Vitamin D deficiency, unspecified
CPT/HCPCS: 82306; 82627; 82642; 82670

== ENCOUNTER 2023-02-18 09:49 | Outpatient (CLI) | payer MEDICARE | END 2023-02-18 09:50 | disposition home or self-care (01) | LOC: LAB 09:49 | PROVIDERS: ATTEND Registered Nurse | DX: Z79.01 Long term (current) use of anticoagulants (principal) | CPT/HCPCS: 36416; 85610 ==

== ENCOUNTER 2023-02-25 12:19 | Outpatient (CLI) | payer MEDICARE | END 2023-02-25 12:20 | disposition home or self-care (01) | LOC: LAB 12:19 | PROVIDERS: ATTEND Registered Nurse | DX: Z79.01 Long term (current) use of anticoagulants (principal) | CPT/HCPCS: 36416; 85610 ==

== ENCOUNTER 2023-05-30 07:49 | Outpatient (CLI) | payer MEDICARE | END 2023-05-30 07:50 | disposition home or self-care (01) | LOC: LAB 07:49 | PROVIDERS: ATTEND Registered Nurse | DX: Z79.01 Long term (current) use of anticoagulants (principal) | CPT/HCPCS: 36416; 85610 ==

== ENCOUNTER 2023-07-04 10:03 | Outpatient (CLI) | payer MEDICARE | END 2023-07-04 10:04 | disposition home or self-care (01) | LOC: LAB 10:03 | PROVIDERS: ATTEND Registered Nurse | DX: Z79.01 Long term (current) use of anticoagulants (principal) | CPT/HCPCS: 36416; 85610 ==

== ENCOUNTER 2023-08-01 13:31 | Outpatient (CLI) | payer MEDICARE | END 2023-08-01 13:32 | disposition home or self-care (01) | LOC: LAB 13:31 | PROVIDERS: ATTEND Registered Nurse | DX: Z79.01 Long term (current) use of anticoagulants (principal) | CPT/HCPCS: 36416; 85610 ==

== ENCOUNTER 2023-09-01 12:24 | Outpatient (CLI) | payer MEDICARE | END 2023-09-01 12:25 | disposition home or self-care (01) | LOC: LAB 12:24 | PROVIDERS: ATTEND Registered Nurse | DX: Z79.01 Long term (current) use of anticoagulants (principal) | CPT/HCPCS: 36416; 85610 ==

== ENCOUNTER 2023-09-12 09:26 | Outpatient (CLI) | payer MEDICARE ==
[2023-09-12 09:42] LABS: BASOPHILS # (AUTO) 0.1 10^3/uL (0.0-0.1); BASOPHILS % (AUTO) 0.9 %; EOSINOPHILS # (AUTO) 0.2 10^3/uL (0.0-0.7); EOSINOPHILS % (AUTO) 2.7 %; HCT - HEMATOCRIT 45.1 % (42.0-52.0); HGB - HEMOGLOBIN 14.9 g/dL (14.0-18.0); LYMPHOCYTES # (AUTO) 1.3 10^3/uL (1.5-3.5); LYMPHOCYTES % (AUTO) 23.1 %; MEAN CORPUSCULAR HEMOGLOBIN 30.1 pg (27.0-31.0); MEAN CORPUSCULAR VOLUME 91.1 fL (80.0-94.0); MEAN PLATELET VOLUME 9.9 fL (7.4-11.4); MONOCYTES # (AUTO) 0.5 10^3/uL (0.0-1.0); MONOCYTES % (AUTO) 8.9 %; NEUTROPHILS # (AUTO) 3.6 10^3/uL (1.5-6.6); PLT - PLATELET COUNT 147 10^3/uL (130-450); RED BLOOD COUNT 4.95 10^6/uL (4.70-6.10); RED CELL DISTRIBUTION WIDTH 12.2 % (12.0-15.0); WHITE BLOOD COUNT 5.6 x10^3/uL (4.8-10.8)
[2023-09-12 09:57] LABS: ALBUMIN 4.5 g/dL (3.2-5.5); ALBUMIN/GLOBULIN RATIO 1.6 (1.0-2.2); ALKALINE PHOSPHATASE 68 IU/L (42-121); ALT ALANINE AMINOTRANSFERASE 15 IU/L (10-60); AST ASPARTATE AMINOTRANSFERASE 17 IU/L (10-42); BILIRUBIN,TOTAL 0.8 mg/dL (0.2-1.0); BUN - BLOOD UREA NITROGEN 19 mg/dL (6-20); CALCIUM 9.3 mg/dL (8.5-10.3); CARBON DIOXIDE - CO2 31 mmol/L (21-32); CHLORIDE 104 mmol/L (101-111); CHOL/HDL RATIO 5.3 (<5.0); CHOLESTEROL 191 mg/dL; GFR - MDRD 74 (>89); GLUCOSE 100 mg/dL (74-104); HDL CHOLESTEROL 36 mg/dL; LDL CHOLESTEROL,CALCULATED 115 mg/dL; LDL/HDL RATIO 3.2 (<3.6); POTASSIUM 4.2 mmol/L (3.5-4.5); SODIUM 139 mmol/L (135-145); TOTAL PROTEIN 7.3 g/dL (6.4-8.9); TRIGLYCERIDES 202 mg/dL (48-352); VLDL CHOLESTEROL 40 mg/dL
== END 2023-09-12 09:27 | disposition home or self-care (01) ==
LOC: LAB 09:26
PROVIDERS: ATTEND Registered Nurse
DX: Z12.5 Encounter for screening for malignant neoplasm of prostate (principal); Z13.228 Encounter for screening for other metabolic disorders; Z13.220 Encounter for screening for lipoid disorders; Z13.29 Encounter for screening for other suspected endocrine disorder; Z13.0 Encounter for screening for diseases of the blood and blood-forming organs and certain disorders involving the immune mechanism
CPT/HCPCS: 36415; 80053; 80061; 84443; 85025; G0103; 83721; 84153

== ENCOUNTER 2023-09-26 08:21 | Outpatient (CLI) | payer MEDICARE ==
[2023-09-26 08:37] LABS: BASOPHILS # (AUTO) 0.1 10^3/uL (0.0-0.1); BASOPHILS % (AUTO) 0.8 %; EOSINOPHILS # (AUTO) 0.1 10^3/uL (0.0-0.7); EOSINOPHILS % (AUTO) 2.4 %; HCT - HEMATOCRIT 46.9 % (42.0-52.0); LYMPHOCYTES # (AUTO) 1.3 10^3/uL (1.5-3.5); LYMPHOCYTES % (AUTO) 22.1 %; MEAN CORPUSCULAR HEMOGLOBIN 29.5 pg (27.0-31.0); MEAN CORPUSCULAR VOLUME 92.1 fL (80.0-94.0); MEAN PLATELET VOLUME 10.1 fL (7.4-11.4); MONOCYTES # (AUTO) 0.6 10^3/uL (0.0-1.0); MONOCYTES % (AUTO) 9.8 %; NEUTROPHILS # (AUTO) 3.8 10^3/uL (1.5-6.6); NEUTROPHILS % (AUTO) 64.6 %; PLT - PLATELET COUNT 153 10^3/uL (130-450); RED BLOOD COUNT 5.09 10^6/uL (4.70-6.10); WHITE BLOOD COUNT 5.9 x10^3/uL (4.8-10.8)
[2023-09-27 19:08] LABS: FREE TESTOSTERONE(DIRECT) 6.3 pg/mL (6.6-18.1)
== END 2023-09-26 08:22 | disposition home or self-care (01) ==
LOC: LAB 08:21
PROVIDERS: ATTEND Naturopath
DX: E29.1 Testicular hypofunction (principal); R53.83 Other fatigue; E55.9 Vitamin D deficiency, unspecified
CPT/HCPCS: 36415; 82627; 82642; 82670; 84402; 84403; 85025

== ENCOUNTER 2023-10-03 10:15 | Outpatient (CLI) | payer MEDICARE | END 2023-10-03 10:16 | disposition home or self-care (01) | LOC: LAB 10:15 | PROVIDERS: ATTEND Registered Nurse | DX: Z79.01 Long term (current) use of anticoagulants (principal) | CPT/HCPCS: 36416; 85610 ==

== ENCOUNTER 2023-10-31 10:57 | Outpatient (CLI) | payer MEDICARE | END 2023-10-31 10:58 | disposition home or self-care (01) | LOC: LAB 10:57 | PROVIDERS: ATTEND Registered Nurse | DX: Z79.01 Long term (current) use of anticoagulants (principal) | CPT/HCPCS: 36416; 85610 ==

== ENCOUNTER 2024-03-16 12:24 | Outpatient (CLI) | payer MEDICARE | END 2024-03-16 12:25 | disposition home or self-care (01) | LOC: LAB 12:24 | PROVIDERS: ATTEND Registered Nurse | DX: Z51.81 Encounter for therapeutic drug level monitoring (principal); Z79.01 Long term (current) use of anticoagulants | CPT/HCPCS: 36416; 85610 ==

== ENCOUNTER 2024-03-28 11:40 | Outpatient (CLI) | payer MEDICARE | END 2024-03-28 11:41 | disposition home or self-care (01) | LOC: LAB 11:40 | PROVIDERS: ATTEND Registered Nurse | DX: Z51.81 Encounter for therapeutic drug level monitoring (principal); Z79.01 Long term (current) use of anticoagulants | CPT/HCPCS: 36416; 85610 ==

== ENCOUNTER 2024-04-18 04:56 | Emergency (ER) | payer MEDICARE ==
[2024-04-18] MEDS: SODIUM CHLORIDE 0.9% 1,000 ML IV STA (05:13)
[2024-04-18] MEDS: ONDANSETRON 4 MG/2 ML VIAL IVP STA (05:13)
[2024-04-18 05:21] LABS: BASOPHILS # (AUTO) 0.1 10^3/uL (0.0-0.1); BASOPHILS % (AUTO) 0.9 %; EOSINOPHILS # (AUTO) 0.2 10^3/uL (0.0-0.7); HCT - HEMATOCRIT 45.6 % (42.0-52.0); HGB - HEMOGLOBIN 14.8 g/dL (14.0-18.0); LYMPHOCYTES # (AUTO) 1.2 10^3/uL (1.5-3.5); LYMPHOCYTES % (AUTO) 15.1 %; MEAN CORPUSCULAR HEMOGLOBIN 29.5 pg (27.0-31.0); MEAN CORPUSCULAR HGB CONC 32.5 g/dL (32.0-36.0); MEAN PLATELET VOLUME 10.5 fL (7.4-11.4); MONOCYTES # (AUTO) 0.7 10^3/uL (0.0-1.0); MONOCYTES % (AUTO) 8.1 %; NEUTROPHILS % (AUTO) 73.3 %; PLT - PLATELET COUNT 155 10^3/uL (130-450); RED BLOOD COUNT 5.01 10^6/uL (4.70-6.10); RED CELL DISTRIBUTION WIDTH 12.5 % (12.0-15.0); WHITE BLOOD COUNT 8.2 x10^3/uL (4.8-10.8)
[2024-04-18 05:31] LABS: INR 2.7 (0.8-1.2); PT - PROTHROMBIN TIME 27.4 secs (9.9-12.6)
[2024-04-18 05:36] LABS: ALBUMIN 4.4 g/dL (3.2-5.5); ALBUMIN/GLOBULIN RATIO 1.5 (1.0-2.2); BILIRUBIN,TOTAL 0.4 mg/dL (0.2-1.0); CALCIUM 9.8 mg/dL (8.5-10.3); POTASSIUM 3.8 mmol/L (3.5-4.5); TOTAL PROTEIN 7.3 g/dL (6.4-8.9)
[2024-04-18] MEDS: HYDROmorphone 1 MG/ML CARPUJECT IVP STA (05:46)
[2024-04-18] MEDS: DROPERIDOL 5 MG/2 ML VIAL IVP STA (05:46)
--- NOTE | 2024-04-18 05:46 | ED Physician Documentation ---
PD HPI ABD PAIN - Stated complaint Stated Complaint: ABD PX - Chief complaint Chief Complaint: Abd Pain - History obtained from History obtained from: Patient - Additional information Additional information: The patient comes to the emergency department with chief complaint of nausea and abdominal pain that started sometime early in the night and has gotten worse. He states that initially, the pain was in his right flank and mid abdomen but that now, it has moved to his epigastric area. He has been severely nauseated but has not vomited yet. He has had a couple of normal bowel movements since yesterday but no diarrhea so far. He states he has a constant feeling of needing to have a bowel movement but has not quite been able to get anything else out yet. He still feels very nauseated. The patient states he has had no surgeries on his abdomen and has no chronic or recurrent issues such as diverticulitis. He had an ulcer and some GI bleeding that developed years ago when he was taking aspirin regularly, so he was taken off of aspirin and told never to take that or any other NSAIDs again. The patient states that he is on Coumadin for history of DVT 10 or 15 years ago. Otherwise he just has hypertension. He denies any urinary symptoms. No blood in his stools. He states he just feels "terrible". PD PAST MEDICAL HISTORY - Past Medical History Past Medical History: Yes Cardiovascular: Hypertension, Deep vein thrombosis - Past Surgical History Past Surgical History: No - Present Medications Home Medications: Ambulatory Orders Medication Instructions Recorded Confirmed Warfarin [Coumadin] 8.5 mg PO UD 07/21/22 09/07/23 Lisinopril [Zestril] 10 mg PO DAILY 09/15/22 09/07/23 Testosterone 50 mg [place] DAILY 09/07/23 09/07/23 HYDROcod/ACETAM 5/325 [Colbert 5/325] 1 - 2 tablet PO Q6H PRN #4 tablet 04/18/24 Ondansetron Odt [Zofran] 4 mg TL Q6H PRN #10 tablet 04/18/24 - Allergies Allergies/Adverse Reactions: Allergies Allergy/AdvReac Type Severity Reaction Status Date / Time aspirin Allergy Unknown Verified 04/18/24 05:04 dabigatran etexilate Allergy Rash Verified 04/18/24 05:04 [From Pradaxa] NSAIDS (Non-Steroidal Allergy Unknown Verified 06/05/24 05:04 Anti-Inflamma - Social History Does the pt smoke?: No Smoking Status: Never smoker Does the pt drink ETOH?: No Does the pt have substance abuse?: No - Immunizations Immunizations are current?: Yes PD ED PE NORMAL - Vitals Vital signs reviewed: Yes - General General: Alert and oriented X 3, No acute distress, Well developed/nourished, Other (Appears moderately uncomfortable but no distress.) - HEENT HEENT: Atraumatic, EOMI, Moist mucous membranes - Neck Neck: Supple, no meningeal sign - Cardiac Cardiac: RRR, No murmur, Strong equal pulses - Respiratory Respiratory: No respiratory distress, Clear bilaterally - Abdomen Abdomen: Soft, Non tender, Non distended - Derm Derm: Normal color, Warm and dry, No rash - Extremities Extremities: No deformity, No edema - Neuro Neuro: Other (Alert, grossly oriented.) - Psych Psych: Normal mood, Normal affect Results - Vitals Vitals: Vital Signs - 24 hr 04/18/24 04/18/24 05:01 05:24 Temperature 36.6 C Heart Rate 73 70 Respiratory 18 Rate Blood Pressure 156/91 H O2 Saturation 100 Oxygen O2 Source Room air - EKG (time done) 0519 EKG releavant findings:: EKG personally interpreted by author of this note. Relevant findings are: Rate: Rate (enter#) (71) Rhythm: NSR Sandy: Normal Intervals: Normal ME QRS: Normal Ischemia: Normal ST segments Compare to prior EKG: Old EKG unavailable Computer interpretation: Agree with computer - Labs Labs: Laboratory Tests 04/18/24 04/18/24 04/18/24 05:12 05:12 05:12 WBC 8.2 RBC 5.01 Hgb 14.8 Hct 45.6 MCV 91.0 MCH 29.5 MCHC 32.5 RDW 12.5 Plt Count 155 MPV 10.5 Neut # (Auto) 6.0 Lymph # (Auto) 1.2 L [place] # (Auto) 0.7 Eos # (Auto) 0.2 Baso # (Auto) 0.1 Absolute Nucleated RBC 0.00 Nucleated RBC % 0.0 PT 27.4 H INR 2.7 H Sodium 139 Potassium 3.8 Chloride 105 Carbon Dioxide 28 Anion Gap 6.0 BUN 24 H Creatinine 1.0 Estimated GFR (MDRD) 74 L Glucose 145 H Calcium 9.8 Total Bilirubin 0.4 AST 14 ALT 12 Alkaline Phosphatase 63 Total Protein 7.3 Albumin 4.4 Globulin 2.9 Albumin/Globulin Ratio 1.5 Lipase 39 PD Medical Decision Making - ED course Complexity details: reviewed results, re-evaluated patient, considered differential, d/w patient, d/w family ED course: The patient was treated symptomatically with IV fluids, Zofran, and droperidol, and Dilaudid. He was sent for CT scan of the abdomen and pelvis after laboratory studies came back unremarkable for anything specific. Departure - Departure Disposition: Home, Self Care Clinical Impression: Abdominal pain Qualifiers: Abdominal location: upper abdomen, unspecified Qualified Code(s): R10.10 - Upper abdominal pain, unspecified Condition: Stable Instructions: ED Abdominal Pain Unkn Cause Male Prescriptions: HYDROcod/ACETAM 5/325 [Colbert 5/325] 1 - 2 tablet PO Q6H PRN #4 tablet PRN Reason: Pain Ondansetron Odt [Zofran] 4 mg TL Q6H PRN #10 tablet PRN Reason: Nausea / Vomiting Comments: Your entire workup including labs and CT scan overall looks good. You do have s ome gallstones in your gallbladder but there is no evidence that your gallbladder is obstructed or inflamed. You have quite a bit of stool in the latter part of your large intestine, which needs to pass, and you will probably feel somewhat better after this. You most likely have one of the many viruses that are going around causing gastrointestinal symptoms right now. There is no evidence of a more serious condition at this time. A prescription for nausea and pain medication has been electronically transmitted to the [facility] for you. It is important that you use the pain medication very sparingly because this can cause constipation which will make your symptoms ultimately worse. If you continue to have symptoms for more than a week, you should call to make an appointment with your primary doctor to follow-up and discuss having endoscopy done. For now however, the symptoms are expected to be self-limited and in general, should pass in a few days at most. Forms: PCP List
[2024-04-18] MEDS ORDERED: iohexoL-300 100 ML VIAL ONE (05:56)
[2024-04-18] MEDS: iohexoL-300 100 ML VIAL IVP ONE (06:16)
[2024-04-18 07:03] VITALS: BP 145/82; O2SAT 98
--- NOTE | 2024-04-18 08:44 | CT Report ---
PROCEDURE: Abdomen/Pelvis W INDICATIONS: R abd pain, nausea, now epigastric pain CONTRAST: Omni 300, 100mls TECHNIQUE: After the administration of intravenous contrast, a CT scan of the abdomen and pelvis was performed. Images were recorded and evaluated at appropriate window settings. Reformats: coronal and sagittal. F or radiation dose reduction, the following was used: automated exposure control, adjustment of mA and /or kV according to patient size. COMPARISON: None. FINDINGS: Image quality: Diagnostic. Lower chest: Right coronary artery calcifications. Otherwise unremarkable. Liver: No solid mass. Tiny cysts versus hemangiomata. Gallbladder: Small dependent gallstones. Distended gallbladder without gallbladder wall thickening. Biliary tree: No intrahepatic or extrahepatic dilation, accounting for age. Spleen: No splenomegaly. Pancreas: No pancreatic ductal dilation. Adrenals: No adrenal nodule. Kidneys and ureters: No hydronephrosis. No renal cystic lesion which requires follow up. No solid mas s. Stomach, bowel and peritoneum: No gastric or small bowel dilation. No abnormal wall thickening. No pa thologic free fluid. Normal appendix. Moderate right colonic fecal debris. Fecalization of distal sma ll bowel contents. Lymph nodes: No central or retroperitoneal adenopathy. Vessels: No infrarenal aortic aneurysm. Patent portal vein. PELVIS Reproductive organs: Mild to moderate enlargement of the prostate.. Bladder: No abnormal wall thickening, accounting for underdistention. Pelvic lymph nodes: No pelvic adenopathy by size criteria. Bones: No aggressive osseous abnormality. Other: No significant ventral or inguinal hernia. IMPRESSION: 1. No acute abdominal process. 2. Coronary artery calcifications. 3. Cholelithiasis. 4. Normal appendix. 5. Nonspecific finding of equalization of distal small bowel contents, possibly suggesting relative s tasis. Findings are concordant with preliminary interpretation provided by [facility]. Reviewed by: Elier Cook MD on 04/18/2024 8:42 AM PDT Approved by: Elier Cook MD on 04/18/2024 8:42 AM PDT Station ID: [id number]
== END 2024-04-18 06:59 | disposition home or self-care (01) ==
LOC: ED 04:56
DX: I10 Essential (primary) hypertension (principal); Z86.718 Personal history of other venous thrombosis and embolism; Z79.01 Long term (current) use of anticoagulants; R10.10 Upper abdominal pain, unspecified; R10.31 Right lower quadrant pain
CPT/HCPCS: 36415; 74177; 80053; 83690; 85025; 85610; 93005; 96374; 96375; 99284; 99285; J1170; Q9967

== ENCOUNTER 2024-06-25 16:23 | Outpatient (CLI) | payer MEDICARE | END 2024-06-25 16:24 | disposition home or self-care (01) | LOC: LAB 16:23 | PROVIDERS: ATTEND Orthopaedic Surgery | DX: I82.509 Chronic embolism and thrombosis of unspecified deep veins of unspecified lower extremity (principal); I87.009 Postthrombotic syndrome without complications of unspecified extremity; Z79.01 Long term (current) use of anticoagulants | CPT/HCPCS: 36416; 85610 ==

== ENCOUNTER 2024-07-26 14:15 | Outpatient (CLI) | payer MEDICARE | END 2024-07-26 14:16 | disposition home or self-care (01) | LOC: LAB 14:15 | PROVIDERS: ATTEND Registered Nurse | DX: Z79.01 Long term (current) use of anticoagulants (principal) | CPT/HCPCS: 36416; 85610 ==